=== PATIENT | female | born 1985 | race Caucasian/White ===

== ENCOUNTER 2016-06-25 09:39 | Day surgery (SDC) | payer OTHER ==
[2016-06-24 11:20] VITALS: BMI 22.8
[2016-06-25] MEDS ORDERED: KETOROLAC TROMETHAMINE 30 MG/1 ML VIAL ONE (12:45)
[2016-06-25] MEDS ORDERED: DEXAMETHASONE SOD PHOSPHATE 4 MG/1 ML VIAL ONE (12:45)
[2016-06-25] MEDS ORDERED: SODIUM CHLORIDE 0.9% P/F 10 ML VIAL IJ ONE (12:45)
[2016-06-25] MEDS ORDERED: ePHEDrine SULFATE 50 MG/1 ML AMPULE ONE (12:45)
[2016-06-25] MEDS ORDERED: ceFAZolin SODIUM 1 GM VIAL ONE (12:45)
[2016-06-25] MEDS ORDERED: MIDAZOLAM HCL 2 MG/2 ML SINGLE DOSE VIAL ONE (12:46)
[2016-06-25] MEDS ORDERED: oxyCODONE HCL 5 MG TABLET PO PRN (13:11)
[2016-06-25] MEDS ORDERED: ONDANSETRON 4 MG/2 ML VIAL IVPUSH PRN (13:11)
[2016-06-25] MEDS ORDERED: PROMETHAZINE HCL 25 MG/1 ML VIAL IVPUSH PRN (13:11)
[2016-06-25] MEDS ORDERED: LACTATED RINGERS SOLUTION 1,000 ML IV SCH (13:15)
[2016-06-25] MEDS ORDERED: ceFAZolin SODIUM 1 GM VIAL IVPB ONE (13:16)
--- NOTE | 2016-06-25 14:57 | OP ---
Operative Note - Note: Operative Date: 06/25/16 Pre-Operative Diagnosis: Breast Asymmetry after Reconstruction Operation: Left Breast: Implant Removal, Extension of Pocket with Anterior Capsulectomy and Placement of Tissue Clinical Lab Specialist. Right Breast: Implant Exchange Implants: Left Breast: [place] CPX4 Low Height Tissue Clinical Lab Specialist 450cc. Right Breast: [place] Moderate Classic Gel 360cc Surgeon: Kenneth Long Anesthesia: General
[2016-06-25 15:57] VITALS: TEMP 98.4
[2016-06-25 18:30] VITALS: BP 115/72; PULSE 66
--- NOTE | 2016-06-25 21:15 | OP ---
DATE OF OPERATION: 06/25/2016 PREOPERATIVE DIAGNOSIS: Breast asymmetry after reconstruction. POSTOPERATIVE DIAGNOSIS: Breast asymmetry after reconstruction. PROCEDURE PERFORMED: Left breast implant removal with extension of pocket and anterior capsulectomy and placement of tissue geotechnical laboratory technician, right breast implant exchange. SURGEON: Kenneth Wei MD ANESTHESIA: General. BRIEF HISTORY: The patient is status post left nipple-sparing mastectomy with subsequent breast reconstruction utilizing a small silicone implant. The patient had contralateral breast augmentation for symmetry. Currently the patient has multiple scars on the left breast, one in the upper inner and one in the lower outer quadrants, both superior to the inframammary folds. The implants are both sitting medial to the breast meridians with resulting asymmetry. The patient now presents for revision of her reconstruction. PROCEDURE: The patient is on the operating table in the supine position and general anesthesia was administered by the anesthesiologist. The area of the chest was prepped and draped in the usual sterile fashion. The patient was marked 1 day prior to surgery in the standing position and these markings are now used as a guide for surgery. The right breast was addressed 1st and a 5-cm inframammary incision was made using a number 15 scalpel and carried down through subcutaneous tissues with electrocautery. The implant was identified and this 250 mL saline implant that appears partially deflated was removed. The volume of the implant was measured at 220 mL. A fiberoptic lighted retractor was introduced and the pocket was extended medially, superiorly, and laterally to accommodate a larger implant. The implant selected was a 360 mL [place] classic profile gel implant. This was selected because of the increased width necessary for this patient's chest dimensions. The pocket was infiltrated with a solution of triple-antibiotic solution and the implant was inserted with the assistance of a Wilson funnel. The wound was then closed in layered fashion. Deep tissues were closed with number 4-0 Biosyn suture in interrupted buried fashion and a continuous suture of 4-0 V-Loc 90 was used intradermally. Attention was then brought to the left breast, where the existing curvilinear incision in the lower outer quadrant of the breast was used. This incision was above the inframammary fold, however, creating 2 parallel incisions with such a small distance between them was felt not to be desirable. Incision was carried down through subcutaneous tissues using electrocautery and the implant was removed. The implant removed was an Allergan 350 mL high-profile gel implant. Fiberoptic lighted retractor was used to expand the pocket superomedially and laterally. An anterior capsulectomy was performed and the thickened portion of capsule that was present beneath the superomedial scar on the breast was excised as well. Hemostasis was achieved with electrocautery and a tissue geotechnical laboratory technician was placed, which is a [place] CPX4 low-height geotechnical laboratory technician 450 mL in size. Initially 50 mL of fluid was placed in the geotechnical laboratory technician to remove all air and the geotechnical laboratory technician was placed and oriented properly. The wound was then closed in layered fashion. Deep tissues were closed with number 4-0 Biosyn suture in interrupted buried fashion and skin was closed an intradermal layer of 4-0 V-Loc 90. The wounds were further secured with Steri-Strips. The magnetic port finder was used to locate the port in the tissue geotechnical laboratory technician and additional sterile saline was instilled into the tissue geotechnical laboratory technician at the conclusion of the case. Saline 250 mL was in the tissue geotechnical laboratory technician. Sterile dressings were then applied and secured with a surgical bar. The patient was then awoken from anesthesia without any difficulty and taken from the operating room to the recovery room in satisfactory condition, having tolerated the procedure well. KENNETH WEI M.D. [id number]
--- NOTE | 2016-06-29 12:52 | PATH ---
Surgical Pathology Report Patient Name: FERNY CASTANEDA [facility]. Rec. #: [id number] /Age/Gender: 1985 (Age: 31) / F Account: [id number] Location: [facility] SURGICAL Taken: 06/25/2016 Received: 06/26/2016 Reported: 06/29/2016 Physicians: Kenneth Long M.D. Specimen(s) Received A: REMOVED RIGHT BREAST IMPLANT B: REMOVED LEFT BREAST IMPLANT C: LEFT BREAST CAPSULE Clinical History Breast cancer Final Diagnosis A. BREAST IMPLANT, RIGHT, EXCHANGE: BREAST IMPLANT (GROSS EXAM). B. BREAST IMPLANT, LEFT, EXCHANGE: BREAST IMPLANT (GROSS EXAM). C. BREAST CAPSULE, LEFT, EXCISION: BENIGN FIBROMEMBRANOUS AND FIBROADIPOSE TISSUE. Electronically Signed Seth Brown M.D. Gross Description A. Received fresh, labeled "removed right breast implant" is a 10 cm in diameter x 2.5 cm in depth clear, rubbery, disc-shaped object, consistent with a breast implant. No soft tissue is present. No sections are submitted, gross only. B. Received fresh, labeled "removed left breast implant" is a 10.5 cm in diameter x 4.5 cm in depth clear, rubbery, disc-shaped object, consistent with a breast implant. No soft tissue is present. No sections are submitted, gross only. C. Received in formalin, labeled "left breast capsule" is a 6.5 x 3.2 x 0.3 cm caro, irregular, unoriented portion of fibrous tissue, consistent with a fibrous capsule. No masses are identified. Cycle Consultant sections are submitted in one cassette. /06/26/2016 [facility]06/26/2016
== END 2016-06-25 18:15 | disposition home or self-care (01) ==
LOC: MERGE 09:39 → JASU-SURG 09:39
PROVIDERS: ATTEND Plastic Surgery
PROC: 0HPT0JZ Removal of Synthetic Substitute from Right Breast, Open Approach (ICD-10-PCS; 2016-06-25)
PROC: 0HRT0JZ Replacement of Right Breast with Synthetic Substitute, Open Approach (ICD-10-PCS; 2016-06-25)
PROC: 0HHU0NZ Insertion of Tissue Expander into Left Breast, Open Approach (ICD-10-PCS; 2016-06-25)
PROC: 0HPU0JZ Removal of Synthetic Substitute from Left Breast, Open Approach (ICD-10-PCS; principal; 2016-06-25 11:00)
PROC: 0HPU0JZ Removal of Synthetic Substitute from Left Breast, Open Approach (ICD-10-PCS; 2016-06-25 11:00)
PROC: 0HUU0JZ Supplement Left Breast with Synthetic Substitute, Open Approach (ICD-10-PCS; 2016-06-25 11:00)
DX: N65.1 Disproportion of reconstructed breast (principal); Z90.12 Acquired absence of left breast and nipple
CPT/HCPCS: 84703; 88300-TC; 88305-TC; 94760

== ENCOUNTER 2016-07-30 10:40 | Day surgery (SDC) | payer OTHER ==
[2016-07-29 08:45] VITALS: BMI 22.8
[2016-07-30] MEDS ORDERED: PROMETHAZINE HCL 25 MG/1 ML VIAL IVPUSH PRN (10:52)
[2016-07-30] MEDS ORDERED: ONDANSETRON 4 MG/2 ML VIAL IVPUSH PRN (10:52)
[2016-07-30] MEDS ORDERED: oxyCODONE HCL 5 MG TABLET PO PRN (10:52)
[2016-07-30] MEDS ORDERED: LACTATED RINGERS SOLUTION 1,000 ML IV SCH (11:00)
[2016-07-30] MEDS ORDERED: MIDAZOLAM HCL 2 MG/2 ML SINGLE DOSE VIAL ONE (14:18)
[2016-07-30] MEDS ORDERED: PROPOFOL 20 ML ONE ×2 (14:18)
[2016-07-30] MEDS ORDERED: ceFAZolin SODIUM 1 GM VIAL ONE (14:58)
[2016-07-30] MEDS ORDERED: DESFLURANE GAS 240 ML BOTTLE IH ONE (15:18)
--- NOTE | 2016-07-30 16:15 | OP ---
Operative Note - Note: Operative Date: 07/30/16 Pre-Operative Diagnosis: Open Wound Left Breast with Exposure of Tissue Environmental Protection Specialist Operation: Left Breast Reconstruction Revision with removal of tissue nuclear plant instrument technician, Debridement and closure of anterior breast wound. Post-Operative Diagnosis: Same as Pre-op Surgeon: Kenneth Long Anesthesia: General Specimens Removed: Left Breast Tissue Environmental Protection Specialist Drains & Tubes with Location: Jose- Guerrero drain x1. Exiting Left IMF at Anterior Axillary Line Operative Report Dictated: Yes
[2016-07-30] MEDS ORDERED: oxyCODONE HCL 5 MG TABLET ONE (18:22)
[2016-07-30 18:40] VITALS: BP 104/56; PULSE 61; TEMP 98.2
--- NOTE | 2016-07-31 14:44 | OP ---
DATE OF OPERATION: 07/30/2016 PREOPERATIVE DIAGNOSIS: Open wound left breast with exposure of tissue heavy lift rigger. POSTOPERATIVE DIAGNOSIS: Open wound left breast with exposure of tissue heavy lift rigger. PROCEDURE PERFORMED: Left breast reconstruction revision with removal of tissue heavy lift rigger, debridement and closure of anterior breast wound. SURGEON: Kenneth Wei MD ANESTHESIA: General. BRIEF HISTORY: The patient is a 31-year-old female who is status post left subcutaneous mastectomy several years ago and never pursued reconstruction. She has an unusual semicircular scar on the left medial breast encompassing nearly half of the circumference of the breast, and she underwent stage reconstruction with insertion of tissue heavy lift rigger recently. She developed an open wound near the inferior margin of this previous surgical scar postoperatively, and this wound resulted in exposure of the underlying tissue heavy lift rigger. She now presents for debridement of this wound with closure and removal of the tissue heavy lift rigger. DESCRIPTION OF PROCEDURE: The patient is on the operating table in the supine position, and general anesthesia was administered by the anesthesiologist. The area of the chest was prepped and draped in the usual sterile fashion. The previous inframammary scar was reopened using a No. 15 scalpel blade and carried down sharply through subcutaneous tissues. The electrocautery was then used, and the tissue heavy lift rigger was exposed. The tissue heavy lift rigger was then removed. The right breast wound was then ellipitically excised full thickness and then closed in layered fashion. Deep tissues were closed with No. 3-0 and 4-0 Biosyn suture with interrupted buried fashion, and several 4-0 nylon interrupted sutures were used to close skin. Jose-Guerrero drain was inserted through a separate stab incision in the anterior axillary line at the level of the inframammary fold and sutured in place with a 2-0 nylon suture. Prior to closure of the inframammary wound, the wound was copiously irrigated with saline solution. The wound was then closed in layered fashion. Deep tissues were closed with No. 3-0 and 4-0 Biosyn suture in interrupted buried fashion, and the skin was closed using a 4-0 Prolene suture in continuous subcuticular fashion. The wounds were secured with Steri-Strips, and sterile dressings were applied and secured with a surgical bra. The patient was then awoken from anesthesia without any difficulty and taken from the operating room to the recovery room in satisfactory condition having tolerated the procedure well. KENNETH WEI M.D. /[id number]
--- NOTE | 2016-08-03 15:17 | PATH ---
Surgical Pathology Report Patient Name: FERNY HESTER [facility]. Rec. #: [id number] /Age/Gender: 1985 (Age: 31) / F Account: [id number] Location: [facility] Taken: 07/30/2016 Received: 07/30/2016 Reported: 08/03/2016 Physicians: Kenneth Long M.D. Specimen(s) Received A: LEFT BREAST DEBRIDED TISSUE B: LEFT BREAST SUPERVISOR MELT HOUSE Clinical History Open wound of left breast Final Diagnosis A. BREAST TISSUE, LEFT, DEBRIDEMENT: SKIN SHOWING ULCERATION WITH ACUTE NECROTIZING INFLAMMATION. B. SUPERVISOR MELT HOUSE, LEFT BREAST, REMOVAL: TISSUE SUPERVISOR MELT HOUSE, DESCRIBED (GROSS EXAMINATION ONLY). Electronically Signed Gladys Schmitz M.D. Gross Description A. Received in formalin, labeled "left breast debrided tissue," is a 2.0 x 0.8 x 0.3 cm aggregate of caro skin fragments. The specimen is entirely submitted in one cassette. B. Received fresh, labeled "left breast tamale machine feeder," is a 14.5 x 10.5 x 2.5 cm caro, irregular device, consistent with a breast tissue tamale machine feeder. No soft tissue is present. No sections are submitted, gross only. 07/31/2016 [place]07/31/2016
== END 2016-07-30 18:55 | disposition home or self-care (01) ==
LOC: FASU 10:40 → MERGE 12:00 → FASU 18:55
PROVIDERS: ATTEND Plastic Surgery
PROC: 0JB60ZZ Excision of Chest Subcutaneous Tissue and Fascia, Open Approach (ICD-10-PCS; 2016-07-30)
PROC: 0HPU0NZ Removal of Tissue Expander from Left Breast, Open Approach (ICD-10-PCS; 2016-07-30)
PROC: 0HRU07Z Replacement of Left Breast with Autologous Tissue Substitute, Open Approach (ICD-10-PCS; principal; 2016-07-30 15:07)
DX: S21.002A Unspecified open wound of left breast, initial encounter (principal); T85.49XA Other mechanical complication of breast prosthesis and implant, initial encounter; Z85.3 Personal history of malignant neoplasm of breast; Z90.12 Acquired absence of left breast and nipple; Y83.8 Other surgical procedures as the cause of abnormal reaction of the patient, or of later complication, without mention of misadventure at the time of the procedure; Y92.9 Unspecified place or not applicable
CPT/HCPCS: 84703; 88300-TC; 88304-TC; 94760

== ENCOUNTER 2016-10-08 06:39 | Day surgery (SDC) | payer OTHER ==
[2016-10-06 14:28] VITALS: BMI 22.8
[2016-10-08] MEDS ORDERED: PROPOFOL 20 ML ONE ×2 (07:39)
[2016-10-08] MEDS ORDERED: ROCURONIUM BROMIDE 50 MG/5 ML VIAL ONE (07:39)
[2016-10-08] MEDS ORDERED: MIDAZOLAM HCL 2 MG/2 ML SINGLE DOSE VIAL ONE (07:39)
[2016-10-08] MEDS ORDERED: ceFAZolin SODIUM 1 GM VIAL ONE (07:43)
[2016-10-08] MEDS ORDERED: ONDANSETRON 4 MG/2 ML VIAL ONE (07:43)
[2016-10-08] MEDS ORDERED: LIDOCAINE HCL/PF 2% SDV 5ML VIAL ONE (07:43)
[2016-10-08] MEDS ORDERED: DEXAMETHASONE SOD PHOSPHATE 4 MG/1 ML VIAL ONE (07:43)
[2016-10-08] MEDS ORDERED: KETOROLAC TROMETHAMINE 30 MG/1 ML VIAL ONE (07:43)
[2016-10-08] MEDS ORDERED: ceFAZolin SODIUM 1 GM VIAL IVPB ONE (08:18)
[2016-10-08] MEDS ORDERED: GLYCOPYRROLATE 0.2 MG/1 ML VIAL ONE (09:22)
[2016-10-08] MEDS ORDERED: NEOSTIGMINE METHYLSULFATE 0.5 MG/ML - 10 ML MDV ONE (09:22)
[2016-10-08] MEDS ORDERED: ONDANSETRON 4 MG/2 ML VIAL IVPUSH PRN (10:23)
[2016-10-08] MEDS ORDERED: oxyCODONE HCL 5 MG TABLET PO PRN ×2 (10:23)
[2016-10-08] MEDS ORDERED: LACTATED RINGERS SOLUTION 1,000 ML IV SCH (10:30)
--- NOTE | 2016-10-08 10:34 | OP ---
Operative Note - Note: Operative Date: 10/08/16 Pre-Operative Diagnosis: Absence of Left Breast Post-Mastectomy. Operation: Left Breast Staged Reconstruction. Insertion of Submuscular Tissue Banquet Pilot. Insertion of Alloderm Sheet. Implants: [place] CPX-4 Tissue Banquet Pilot 450cc Surgeon: Kenneth Long Anesthesia: General Estimated Blood Loss (mls): 50 Drains & Tubes with Location: Jose Guerrero x 1 Operative Report Dictated: Yes
[2016-10-08] MEDS ORDERED: oxyCODONE HCL 5 MG TABLET ONE ×2 (12:03→13:38)
[2016-10-08] MEDS ORDERED: oxyCODONE HCL 5 MG TABLET PO ONE ×2 (12:05→13:40)
[2016-10-08 12:10] VITALS: TEMP 98.7
[2016-10-08] MEDS ORDERED: LIDOCAINE HCL 1%, 10 MG/ML (20ML VIAL) ONE (15:25)
[2016-10-08] MEDS ORDERED: ACETAMINOPHEN 325 MG TABLET (FP) ONE (17:28)
[2016-10-08 17:51] VITALS: BP 130/79; PULSE 82
--- NOTE | 2016-10-09 11:30 | OP ---
DATE OF OPERATION: 10/08/2016 PROCEDURE PERFORMED: Left breast staged reconstruction with insertion of submuscular tissue level vial inside grinder and AlloDerm sheet. PREOPERATIVE DIAGNOSIS: Post mastectomy absence of left breast. POSTOPERATIVE DIAGNOSIS: Post mastectomy absence of left breast. SURGEON: Kenneth Long MD ANESTHESIA: General. PROCEDURE: The patient was placed on the operating table in the supine position, and general anesthesia was administered by the anesthesiologist. The area of the chest was prepped and draped in the usual sterile fashion. The left breast was approached via a previous inframammary incision, and this incision was made with a No. 15 scalpel blade. It was carried down sharply through subcutaneous tissues using electrocautery. The plane was continued superiorly and continued in the submuscular plane. The submuscular pocket was extended medially, laterally and superiorly, large enough to accommodate the tissue level vial inside grinder. The level vial inside grinder selected was a [place] CPX4 low-height level vial inside grinder, 450 mL in size. Prior to placing the level vial inside grinder, it was inflated with 50 mL of saline to facilitate removing the air. The level vial inside grinder was then placed, and orientation was confirmed using the suture tabs on the posterior aspect of the level vial inside grinder. Prior to placing the level vial inside grinder, the superior edge of a trimmed piece of perforated, medium-size AlloDerm was sutured to the inferior border of the pectoralis major muscle using 2-0 Vicryl suture in interrupted fashion. Now that the level vial inside grinder was in place, the AlloDerm was reflected over the lower pole of the level vial inside grinder and sutured in the intramammary fold similarly with 2-0 Vicryl suture in interrupted fashion. A Jose-Guerrero drain was inserted using a trocar and fixed to the skin with a 2-0 silk suture. The Jose-Guerrero drain was trimmed and was inserted both over and then piercing under the AlloDerm between 2 sutures. The wound was then closed in layered fashion. Deep tissues were closed with a number 3-0 Biosyn suture in interrupted buried fashion, and skin was closed with a number 4-0 Prolene suture in continuous subcuticular fashion. The port finder was then used to locate the port superiorly, and an additional 50 mL of saline was instilled into the level vial inside grinder. So, a total of 100 mL was instilled in the level vial inside grinder at the conclusion of the surgery. Sterile dressings were then applied and secured with a surgical bra. The patient was then awoken from anesthesia without any difficulty and taken from the operating room to the recovery room in satisfactory condition, having tolerated the procedure well. Sylvain IBANEZ/[id number]
== END 2016-10-08 18:04 | disposition home or self-care (01) ==
LOC: JASU-SURG 06:39
PROVIDERS: ATTEND Plastic Surgery
PROC: 0HUU0JZ Supplement Left Breast with Synthetic Substitute, Open Approach (ICD-10-PCS; principal; 2016-10-08 08:00)
DX: Z90.12 Acquired absence of left breast and nipple (principal); Z85.3 Personal history of malignant neoplasm of breast
CPT/HCPCS: 84703; 94760

== ENCOUNTER 2017-05-27 06:33 | Day surgery (SDC) | payer OTHER ==
[2017-05-26 14:16] VITALS: BMI 21.9
[2017-05-27] MEDS ORDERED: fentaNYL CITRATE 250 MCG/5 ML VIAL ONE (07:47)
[2017-05-27] MEDS ORDERED: PROPOFOL 20 ML ONE (07:47)
[2017-05-27] MEDS ORDERED: MIDAZOLAM HCL 2 MG/2 ML SINGLE DOSE VIAL ONE (07:47)
[2017-05-27] MEDS ORDERED: ROCURONIUM BROMIDE 50 MG/5 ML VIAL ONE (07:47)
[2017-05-27] MEDS ORDERED: ONDANSETRON 4 MG/2 ML VIAL ONE (08:22)
[2017-05-27] MEDS ORDERED: DEXAMETHASONE SOD PHOSPHATE 4 MG/1 ML VIAL ONE (08:22)
[2017-05-27] MEDS ORDERED: ceFAZolin SODIUM 1 GM VIAL ONE (08:27)
[2017-05-27] MEDS ORDERED: GLYCOPYRROLATE 0.2 MG/1 ML VIAL ONE ×2 (09:23→09:24)
[2017-05-27] MEDS ORDERED: NEOSTIGMINE METHYLSULFATE 0.5 MG/ML - 10 ML MDV ONE (09:23)
[2017-05-27] MEDS ORDERED: ONDANSETRON 4 MG/2 ML VIAL IVPUSH PRN (09:46)
[2017-05-27] MEDS ORDERED: ACETAMINOPHEN 325 MG TABLET (FP) PO PRN (09:46)
[2017-05-27] MEDS ORDERED: oxyCODONE HCL 5 MG TABLET PO PRN (09:46)
[2017-05-27] MEDS ORDERED: LACTATED RINGERS SOLUTION 1,000 ML IV SCH (10:00)
--- NOTE | 2017-05-27 10:17 | OP ---
Operative Note - Note: Operative Date: 05/27/17 Pre-Operative Diagnosis: Absence of Left Breast- Acquired, Presence of Tissue Shot Lighter Left Breast Operation: Left Breast Staged Reconstruction- Removal of Tissue Shot Lighter, Revision of Implant Pocket, Partial Capsulectomy, Insertion of Shaped Prosthesis Implants: [place] MemoryShape Medium Height Moderate Plus Profile Gel Filled 475cc Surgeon: Kenneth Long Anesthesia: General Specimens Removed: Left Breast Tissue Shot Lighter, Implant Capsule Estimated Blood Loss (mls): 20 Operative Report Dictated: Yes
[2017-05-27 10:44] VITALS: TEMP 97.8
[2017-05-27] MEDS ORDERED: oxyCODONE HCL 5 MG TABLET ONE (11:54)
[2017-05-27 12:44] VITALS: BP 122/79; PULSE 69
--- NOTE | 2017-05-27 16:21 | OP ---
DATE OF OPERATION: 05/27/2017 SEX: Female. AGE: 32. PREOPERATIVE DIAGNOSIS: Acquired absence of left breast with presence of left breast tissue apartment manager. POSTOPERATIVE DIAGNOSIS: Acquired absence of left breast with presence of left breast tissue apartment manager. PROCEDURE PERFORMED: Left breast staged reconstruction with removal of tissue apartment manager, revision of implant pocket, partial capsulectomy, insertion of shaped prosthesis. SURGEON: Kenneth Wei MD ANESTHESIA: General via endotracheal tube. DESCRIPTION OF PROCEDURE: The patient was on the operating table in the supine position, and general anesthesia was administered by the anesthesiologist. The area of the chest was then prepped and draped in the usual sterile fashion. The left breast had been marked prior to surgery, and these markings were now used as a guide. A new incision was used rather than using previous surgical incisions. This incision was made inferior to and parallel to the lower pole scar which had been placed previously. The new incision was placed at the level of the proposed inframammary fold with about a 4-cm bridge between the incisions. The incision was made approximately 6 cm in length and carried down sharply through subcutaneous tissues. Electrocautery was used for dissection. Dissection continued superiorly, keeping a thick pad under the previous surgical scar, and the tissue apartment manager was identified. The dissection continued around the apartment manager, and the apartment manager was punctured and removed. A thick capsule was noted in the inferior portion of the breast, and this was excised. The pocket was extended circumferentially, especially in the lower medial and lateral poles. The lighted retractor was used for assistance superiorly, dissecting the pocket superiorly and superolaterally. The implant selected was a [place] MemoryShape medium-height, moderate plus profile silicone gel implant, 475 mL in size. This was inserted with the assistance of a Wilson funnel. The marking at the 6 o'clock position on the implant was confirmed to be in proper position once inserted. The patient was moved to the sitting position to confirm symmetry on the operating table and was returned back to the supine position for closure. Deep tissues were closed with 3-0 Biosyn suture in interrupted buried fashion, and a deep dermal layer of 4-0 V-Loc 90 was used for skin. The wound was further secured with Steri-Strips, and sterile dressings were applied and supported with a surgical bra. The patient was then awoken from anesthesia without any difficulty and taken from the operating room to the recovery room in satisfactory condition, having tolerated the procedure well. KENNETH WEI M.D. /[id number]
--- NOTE | 2017-05-28 17:42 | PATH ---
Surgical Pathology Report Patient Name: FERNY HESTER [facility]. Rec. #: [id number] /Age/Gender: 1985 (Age: 32) / F Account: [id number] Location: [facility] Taken: 05/27/2017 Received: 05/27/2017 Reported: 05/28/2017 Physicians: Kenneth Long M.D. Specimen(s) Received A: MASS OF LEFT RING FINGER B: LEFT PNEUMATIC TESTER Clinical History Mass left ring finger Final Diagnosis A. FINGER, LEFT, RING, MASS, EXCISION: CONSISTENT WITH GANGLION CYST. B. BREAST PNEUMATIC TESTER, LEFT, REMOVAL: BREAST PNEUMATIC TESTER. MACROSCOPIC DIAGNOSIS Electronically Signed Marisol Contreras M.D. Gross Description A. Received in formalin labeled "mass left ring finger," is a 0.8 x 0.4 x 0.1 cm pink-caro soft tissue fragment, possibly consistent with a cyst. The specimen is submitted in toto in one cassette. B. Received fresh labeled "left cardiac rehab nurse," is a 14.0 x 10.0 x 6.5 cm caro foreign body, consistent with a breast tissue cardiac rehab nurse. No soft tissue is present. No sections are submitted, gross only. 05/27/201705/27/2017
== END 2017-05-27 12:40 | disposition home or self-care (01) ==
LOC: JASU-SURG 06:33
PROVIDERS: ATTEND Plastic Surgery
PROC: 0HWU0JZ Revision of Synthetic Substitute in Left Breast, Open Approach (ICD-10-PCS; principal; 2017-05-27 08:00)
DX: Z90.12 Acquired absence of left breast and nipple (principal)
CPT/HCPCS: 84703; 88300-TC; 88304-TC; 94760

== ENCOUNTER 2019-06-27 06:54 | Day surgery (SDC) | payer OTHER ==
[2019-06-23 17:37] VITALS: BMI 25.0
[2019-06-27] MEDS ORDERED: DEXAMETHASONE SOD PHOSPHATE 4 MG/1 ML VIAL ONE (07:41)
[2019-06-27] MEDS ORDERED: PROPOFOL 20 ML ONE ×5 (07:41→07:42)
[2019-06-27] MEDS ORDERED: EPHEDRINE SULFATE/0.9% NACL/PF 50 MG/10 ML SYRINGE NR ONE (07:41)
[2019-06-27] MEDS ORDERED: ROCURONIUM BROMIDE 50 MG/5 ML SYRINGE ONE ×2 (07:41→10:23)
[2019-06-27] MEDS ORDERED: ceFAZolin SODIUM 1 GM VIAL ONE (07:41)
[2019-06-27] MEDS ORDERED: GLYCOPYRROLATE 0.2 MG/1 ML VIAL ONE (07:41)
[2019-06-27] MEDS ORDERED: fentaNYL CITRATE 250 MCG/5 ML VIAL ONE (07:41)
[2019-06-27] MEDS ORDERED: LIDOCAINE HCL 2% JELLY (5 ML/TUBE) ONE (07:41)
[2019-06-27] MEDS ORDERED: LIDOCAINE HCL/PF 2% SDV 5ML VIAL ONE (07:41)
[2019-06-27] MEDS ORDERED: SUCCINYLCHOLINE CHLORIDE 200 MG/10 ML SYRINGE ONE (07:42)
[2019-06-27] MEDS ORDERED: MIDAZOLAM HCL 2 MG/2 ML SINGLE DOSE VIAL ONE (07:42)
[2019-06-27] MEDS ORDERED: LIDOCAINE HCL 1% EPINEPHRINE 1:200,000 30 ML VIAL (PF) ONE (08:28)
[2019-06-27] MEDS ORDERED: SODIUM CHLORIDE 0.9% P/F 10 ML VIAL IJ ONE (08:35)
[2019-06-27] MEDS ORDERED: ceFAZolin SODIUM 1 GM VIAL IVPB ONE (08:40)
[2019-06-27] MEDS ORDERED: HYDROmorphone HCl 2 MG/ML VIAL ONE (10:21)
[2019-06-27] MEDS ORDERED: NEOSTIGMINE METHYLSULFATE 0.5 MG/ML - 10 ML MDV ONE (10:54)
--- NOTE | 2019-06-27 11:56 | OP ---
Operative Note - Note: Operative Date: 06/27/19 Pre-Operative Diagnosis: Asymmetry of breast after breast reconstruction. Operation: revision of bilateral breast reconstruction with left capsulectomy and bilateral implant exchange. Post-Operative Diagnosis: Same as Pre-op Surgeon: Kenneth Long Form Grader Operator: Gladys Perez Anesthesiologist/FISHER TROT LINE: Larissa Martin Anesthesia: General Specimens Removed: bilateral breast implants Estimated Blood Loss (mls): 50 Fluid Volume Replaced (mls): 900 Operative Report Dictated: Yes
--- NOTE | 2019-06-27 12:03 | OP ---
Operative Note - Note: Operative Date: 06/27/19 Pre-Operative Diagnosis: Post-Mastectomy Breast Asymmetry Operation: Left Breast Reconstruction Revision, Removal of Prosthesis, Partial Capsulectomy, Revision of Medial Implant Pocket, Closure of Submuscular Pocket, Insertion of Subglandular Prosthesis. Right Breast Implant Exchange for Symmetry, Revision of Medial Implant Pocket. Implants: Left- [place] Smooth Round Bhtbe-Pddb-Wrksjsb Silicone- 455cc. Right- [place] Smooth Round Moderate Classic Profile Silicone- 300cc Post-Operative Diagnosis: Same as Pre-op Surgeon: Kenneth Long Lorry Weigher: Gladys Perez Anesthesia: General Specimens Removed: Bilateral Breast Prostheses, Left Breast Impant Capsule Operative Report Dictated: Yes
--- NOTE | 2019-06-27 12:19 | OP ---
Operative Note - Note: Operative Date: 06/27/19 Pre-Operative Diagnosis: Cosmetic Dissatisfaction with Appearance of [place] Operation: Suction Assisted Lipectomy Upper/Lower Abdomen, Flanks, Lower Back Post-Operative Diagnosis: Same as Pre-op Surgeon: Kenneth Long Anesthesia: General Operative Report Dictated: Yes
[2019-06-27] MEDS ORDERED: ACETAMINOPHEN 325 MG TABLET (FP) ONE (13:01)
[2019-06-27] MEDS ORDERED: ACETAMINOPHEN 325 MG TABLET (FP) PO ONE (13:05)
[2019-06-27 13:11] VITALS: TEMP 97.5
[2019-06-27] MEDS ORDERED: ACETAMINOPHEN 500 MG TABLET (FP) PO ONE (14:21)
[2019-06-27] MEDS ORDERED: oxyCODONE HCL 5 MG TABLET PO PRN (14:21)
[2019-06-27] MEDS ORDERED: ONDANSETRON 4 MG/2 ML VIAL IVPUSH PRN (14:21)
--- NOTE | 2019-06-27 14:23 | OP ---
DATE OF OPERATION: 06/27/2019 PREOPERATIVE DIAGNOSIS: Cosmetic dissatisfaction with appearance of abdomen. POSTOPERATIVE DIAGNOSIS: Cosmetic dissatisfaction with appearance of abdomen. PROCEDURE PERFORMED: Suction-assisted lipectomy of upper and lower abdomen, flanks, and lower back. SURGEON: Kenneth Wei MD ANESTHESIA: General. BRIEF HISTORY: This was a short cosmetic procedure done at the same time as the patient had breast reconstruction surgery. The cosmetic procedure length in the surgery by approximately 34 minutes. PROCEDURE: The patient was on the operating table during a breast reconstruction procedure, and after completion of the reconstruction, liposuction of the abdomen, flanks, and lower back was performed. These areas were marked with the patient in standing position and these markings were now used as a guide for surgery. The areas treated were each infiltrated with a tumescent solution. The solution consisted of 1 L of Ringer's lactate with 30 mL of lidocaine 1% with 1:200,000 epinephrine. This solution was instilled using an infusion pump in the areas to be treated. Liposuction was performed, using hand-suction technique, using a 3-mm liposuction cannula with incisions in the abdomen and along the lower abdomen underneath the patient's bathing suit line. Each incision, other than the umbilical incision, was closed with a single 5-0 nylon suture. After the patient was awoken from anesthesia, a compressive garment was placed. The patient was awoken from anesthesia without difficulty, and taken from the operating room to the recovery room in satisfactory condition, having tolerated procedure well. KENNETH WEI M.D. /[id number]
[2019-06-27] MEDS ORDERED: LACTATED RINGERS SOLUTION 1,000 ML IV SCH (14:30)
[2019-06-27] MEDS ORDERED: ONDANSETRON 4 MG/2 ML VIAL IVPUSH ONE (14:55)
[2019-06-27] MEDS ORDERED: ONDANSETRON 4 MG/2 ML VIAL ONE (14:56)
[2019-06-27 18:25] VITALS: BP 110/70; PULSE 65
--- NOTE | 2019-06-28 14:49 | PATH ---
Surgical Pathology Report Patient Name: FERNY CASTANEDA [facility]. Rec. #: [id number] /Age/Gender: 1985 (Age: 34) / F Account: [id number] Location: [facility] Taken: 06/27/2019 Received: 06/27/2019 Reported: 06/28/2019 Physicians: Kenneth Long M.D. Specimen(s) Received A: LEFT BREAST CAPSULE B: OLD BREAST INPLANTS Clinical History Breast asymmetry post mastectomy Final Diagnosis A. BREAST, LEFT, CAPSULE, EXCISION: FIBROADIPOSE TISSUE AND DENSE FIBROCONNECTIVE TISSUE WITH PATCHY CHRONIC INFLAMMATION CONSISTENT WITH BREAST CAPSULE. B. OLD BREAST IMPLANTS, BILATERAL, REMOVAL: BREAST IMPLANTS(2). MACROSCOPIC DIAGNOSIS. Electronically Signed Marisol Contreras M.D. Gross Description A. Received in formalin labeled "capsule left breast," is a 5.7 x 2.0 x 0.3 cm caro pink portion of fibromembranous tissue, consistent with a portion of breast capsule. No discrete lesions are identified. Turbine Mechanic sections are submitted in one cassette. B. Received fresh labeled "old breast implants bilateral," are 2 caro, intact, rubbery breast implants measuring 14.0 x 13.0 x 5.0 cm and 13.5 x 13.5 x 3.0 cm. No soft tissue is present. No sections are submitted, gross only. /06/27/2019 [place]06/27/2019
--- NOTE | 2019-07-12 09:39 | SURG ---
Surgery Drapery Supervisor Note Drapery Supervisor: Gladys Perez PA-C Date of Service: 06/27/19 Diagnosis: Post-Mastectomy Breast Asymmetry Procedure: Left Breast Reconstruction Revision, Removal of Prosthesis, Partial Capsulectomy, Revision of Medial Implant Pocket, Closure of Submuscular Pocket, Insertion of Subglandular Prosthesis. Right Breast Implant Exchange for Symmetry, Revision of Medial Implant Pocket I was present for the entirety of the operative procedure. For further detail, please refer to operative report. Visit type - Case Type Case Type: Scheduled - Emergency Emergency Visit: No - New patient This patient is new to me today: Yes Date on this admission: 06/27/19
--- NOTE | 2019-08-09 07:59 | OP ---
DATE OF OPERATION: 06/27/2019 DATE OF THIS RE-DICTATION: 08/08/2019 PREOPERATIVE DIAGNOSIS: Post mastectomy breast asymmetry. POSTOPERATIVE DIAGNOSIS: Post mastectomy breast asymmetry. PROCEDURE PERFORMED: 1. Left breast reconstruction revision with removal of prosthesis, partial capsulectomy, revision of medial implant pocket, closure of submuscular pocket and insertion of subglandular prosthesis. 2. Right breast implant exchange for symmetry with revision of medial implant pocket. BRIEF HISTORY: The patient is status post mastectomy with reconstruction of the left breast. The procedures had been performed in a way causing multiple scars on the surface of the left breast which have despite multiple reconstructive efforts presented a region of difficult expansion and restriction of the left breast. Therefore, it was decided to change the position of the left breast prosthesis from a submuscular to the subglandular position. PROCEDURE: The left breast was approached first and the inframammary fold incision was reopened and incision was carried down sharply through subcutaneous tissues. Electrocautery was used for hemostasis. The implant was identified and a modest capsule was noted around the prosthesis and an anterior capsulectomy was performed. The subglandular pocket was then closed with No. 3-0 Biosyn suture in interrupted fashion to prevent postoperative seroma. The subglandular pocket was then developed using electrocautery and fiberoptic lighted retractor. The pocket was dissected medially, superiorly and laterally and hemostasis was achieved. The implant selected was a Sabinal smooth round ultra high-profile silicone implant, 455 mL in size. This was inserted without difficulty using a Wilson funnel. The patient was moved into the sitting position and the pocket was further refined and subcutaneous tissues were closed. Deep tissues were closed with No. 3-0 and 4-0 Biosyn suture in interrupted buried fashion. Prior to closing the left breast skin the right breast was now addressed and the inframammary incision was opened and carried down sharply through subcutaneous tissues until the implant was exposed. The implant was removed without any difficulty and the lighted retractor was now used to examine and further dissect the pocket medially. A new implant was selected which was a Sabinal smooth round moderate classic profile silicone, 300 mL in size, and this was inserted without difficulty using the Wilson funnel. Patient was again moved to the sitting position to confirm symmetric placement of the implants and then returned to the supine position for closure. Deep tissues were closed with No. 3-0 and 4-0 Biosyn suture in interrupted buried fashion. Deep dermal sutures were used on both sides consisting of 4-0 V-Loc 90 in continuous intradermal fashion. Wounds were further secured with Steri-Strips and sterile dressings were applied consisting of Kerlix fluffs, combines and a surgical bra. The patient was then awoken from anesthesia without difficulty and taken from the operating room to the recovery room in satisfactory condition, having tolerated the procedure well. KENDELL WEI M.D. /[id number]
== END 2019-06-27 16:50 | disposition home or self-care (01) ==
LOC: JASU-SURG 06:54
PROVIDERS: ATTEND Plastic Surgery
PROC: 0J083ZZ Alteration of Abdomen Subcutaneous Tissue and Fascia, Percutaneous Approach (ICD-10-PCS; 2019-06-27)
PROC: 0HWU0JZ Revision of Synthetic Substitute in Left Breast, Open Approach (ICD-10-PCS; principal; 2019-06-27 08:00)
PROC: 0HWT0JZ Revision of Synthetic Substitute in Right Breast, Open Approach (ICD-10-PCS; 2019-06-27 08:00)
PROC: 0HRV0JZ Replacement of Bilateral Breast with Synthetic Substitute, Open Approach (ICD-10-PCS; 2019-06-27 08:00)
DX: N65.1 Disproportion of reconstructed breast (principal); Z90.13 Acquired absence of bilateral breasts and nipples; Z41.1 Encounter for cosmetic surgery
CPT/HCPCS: 84703; 88300-TC; 88304-TC; 94760

== ENCOUNTER 2024-04-18 19:25 | Emergency (ER) | payer OTHER ==
[2024-04-18 19:35] VITALS: BP 136/89; PULSE 81; RESP 17; TEMP 99; BMI 27.1
[2024-04-18 20:54] LABS: BASO % 0.8 % (0-2.0); EOS % 0.8 % (0-4.5); HEMATOCRIT 38.5 % (32.4-45.2); HEMOGLOBIN 12.7 GM/dL (10.7-15.3); LYMPH % 19.7 % (8-40); MCH 29.7 pg (25.7-33.7); MEAN CELL VOLUME 90.2 fl (80-96); MEAN PLT VOLUME 10.3 fl (7.5-11.1); MONO % 5.9 % (3.8-10.2); NEUT % 72.8 % (42.8-82.8); PLATELET COUNT 239 10^3/uL (134-434); RBC 4.27 M/mm3 (3.60-5.2); RDW 13.2 % (11.6-15.6)
[2024-04-18] MEDS ORDERED: KETOROLAC TROMETHAMINE 15 MG/ML VIAL ONE (20:56)
[2024-04-18 20:59] LABS: INR 0.99 (0.83-1.09); PROTHROMBIN TIME (PATIENT) 11.4 SEC (9.7-13.0)
[2024-04-18 21:02] LABS: ACTIVATED PTT 26.9 SECONDS (25.2-36.5)
[2024-04-18] MEDS: KETOROLAC TROMETHAMINE 15 MG/ML VIAL IVPUSH ONE (21:02)
[2024-04-18 21:12] LABS: POTASSIUM 3.9 mmol/L (3.5-5.1)
[2024-04-18 21:14] LABS: ALBUMIN 3.4 g/dl (3.4-5.0); CALCIUM 9.1 mg/dL (8.5-10.1)
[2024-04-18 21:15] LABS: BLOOD UREA NITROGEN 10.8 mg/dL (7-18)
[2024-04-18 21:18] LABS: CREATININE 0.7 mg/dL (0.55-1.3)
[2024-04-18 21:19] LABS: BILIRUBIN,TOTAL 0.5 mg/dL (0.2-1); TOT PROT 6.4 g/dl (6.4-8.2)
== END 2024-04-18 21:50 | disposition home or self-care (01) ==
LOC: JER 19:25
PROC: 3E0333Z Introduction of Anti-inflammatory into Peripheral Vein, Percutaneous Approach (ICD-10-PCS; principal; 2024-04-18)
DX: O03.9 Complete or unspecified spontaneous abortion without complication (principal); T47.1X5A Adverse effect of other antacids and anti-gastric-secretion drugs, initial encounter
CPT/HCPCS: 36415; 80053; 85025; 85610; 85730; 86850; 86900; 86901; 93005; 93010; 99284-25